=== PATIENT | male | born 1970 | race Caucasian/White ===

== ENCOUNTER 2022-04-30 16:07 | Inpatient (IN) ==
[2022-04-30] MEDS ORDERED: ZALEPLON 5 MG CAPSULE PO PRN (21:29)
[2022-04-30] MEDS ORDERED: ONDANSETRON 4 MG/2 ML VIAL IV PRN (21:29)
[2022-04-30] MEDS: ENOXAPARIN 40 MG/0.4 ML SYRINGE SUBCUT SCH (23:21)
[2022-05-01 01:12] LABS: Basophils % 0.5 % (0.0-0.8); Eosinophils # 0.2 10*3/uL (0.0-0.87); Eosinophils % 1.8 % (0.00-10.9); Hematocrit 39.9 VOL% (42.0-52.0); Hemoglobin 13.9 GM/DL (14.0-18.0); Immature Granulocytes % 0.5 %; Immature Granulocytes Absolute 0.04 #; Lymphocytes # 2.7 10*3/uL (1.4-4.0); Lymphocytes % 32.1 % (21.2-54.2); Mean Corpuscular HGB Conc 34.8 GM/DL (32-36); Mean Corpuscular Volume 87.9 FL (87-102); Mean Platelet Volume 10.2 FL (9.6-12.0); Monocytes # 0.8 10*3/uL (0.11-0.8); Monocytes % 9.1 % (1.7-12.7); Platelet Count 155 T/CUMM (130-400); Red Blood Count 4.54 MC/CUMM (3.8-5.5); Red Cell Distribution Width 13.2 % (9.3-17.3); White Blood Count 8.3 T/CUMM (4-12)
[2022-05-01 01:48] LABS: Albumin 3.6 G/DL (3.4-5.0); Bilirubin,Total 0.8 MG/DL (0.20-1.00); Calcium 8.5 MG/DL (8.5-10.1); Osmolality,Calculated 285.3 MOS/KG (273-304); Potassium 3.7 MMOL/L (3.5-5.1); Risk Ratio 5.1; Thyroid Stimulating Hormone 1.81 uIU/ml (0.358-3.74); Total Protein 6.2 G/DL (6.4-8.2); VLDL Cholesterol 65.6 MG/DL
[2022-05-01] MEDS: MORPHINE 2 MG/1 ML SYRINGE IV PRN (03:38)
[2022-05-01] MEDS: LOSARTAN 50 MG TABLET PO SCH (11:24)
[2022-05-01] MEDS: LACTATED RINGERS 1,000 ML IV SCH ×2 (11:38→20:52)
[2022-05-01] MEDS: ACETAMINOPHEN 325 MG TABLET PO PRN ×2 (11:42→18:35)
[2022-05-01] MEDS: PANTOPRAZOLE 40 MG TABLET PO SCH (11:43)
[2022-05-01] MEDS: ASPIRIN EC 81 MG TABLET PO SCH (11:43)
[2022-05-01] MEDS: allopurinoL 100 MG TABLET PO SCH (11:50)
[2022-05-01] MEDS: ENOXAPARIN 40 MG/0.4 ML SYRINGE SUBCUT SCH (20:52)
[2022-05-01] MEDS ORDERED: ALUMINUM/MAGNES/SIMETH MAX STR 30 ML UDCUP PO PRN (22:09)
[2022-05-02] MEDS: MORPHINE 2 MG/1 ML SYRINGE IV PRN (02:14)
[2022-05-02 05:15] LABS: Basophils % 0.6 % (0.0-0.8); Eosinophils # 0.1 10*3/uL (0.0-0.87); Eosinophils % 1.3 % (0.00-10.9); Hematocrit 38.1 VOL% (42.0-52.0); Immature Granulocytes % 0.2 %; Immature Granulocytes Absolute 0.01 #; Mean Corpuscular HGB Conc 34.1 GM/DL (32-36); Mean Corpuscular Volume 88.2 FL (87-102); Mean Platelet Volume 11.1 FL (9.6-12.0); Monocytes # 0.4 10*3/uL (0.11-0.8); Monocytes % 8.8 % (1.7-12.7); Neutrophils % 48.1 % (38.7-73.9); Platelet Count 145 T/CUMM (130-400); Red Blood Count 4.32 MC/CUMM (3.8-5.5); Red Cell Distribution Width 12.9 % (9.3-17.3); White Blood Count 4.8 T/CUMM (4-12)
[2022-05-02 05:27] LABS: Bilirubin,Total 0.5 MG/DL (0.20-1.00); Calcium 8.5 MG/DL (8.5-10.1); Osmolality,Calculated 291.7 MOS/KG (273-304); Potassium 3.8 MMOL/L (3.5-5.1); Total Protein 5.8 G/DL (6.4-8.2)
[2022-05-02] MEDS: LACTATED RINGERS 1,000 ML IV SCH ×2 (06:20→14:56)
[2022-05-02] MEDS: PANTOPRAZOLE 40 MG TABLET PO SCH (09:13)
[2022-05-02] MEDS: ASPIRIN EC 81 MG TABLET PO SCH (09:13)
[2022-05-02] MEDS: LOSARTAN 50 MG TABLET PO SCH (09:13)
[2022-05-02] MEDS: allopurinoL 100 MG TABLET PO SCH (09:14)
[2022-05-02 12:46] VITALS: BP 145/81
[2022-05-02] MEDS: ACETAMINOPHEN 325 MG TABLET PO PRN (14:57)
== END 2022-05-02 16:34 | disposition home or self-care (01) | DRG 310 ==
LOC: N.TELEN → SUATTDRO 20:26 → OBSVTOIN 20:26 → INTOOBSV 21:30 → SUATTDRO 05-01 08:02
PROVIDERS: ADMIT Internal Medicine; ATTEND Internal Medicine